=== PATIENT | female | born 1960 | race Caucasian/White ===

== ENCOUNTER 2022-06-28 17:31 | Emergency (ER) | payer MEDICARE, MEDICAID ==
[~2022-06-28] VITALS: Ht 152.4 cm; Wt 84.0 kg
[2022-06-28 17:46] VITALS: BP 145/78
[2022-06-28] MEDS ORDERED: CARISOPRODOL 350 MG TABLET PO ONE (21:45)
[2022-06-28] MEDS ORDERED: IPRATROPIUM/ALBUTEROL 0.5-3(2.5)MG/3ML NEB HHN ONE (21:45)
[2022-06-28] MEDS ORDERED: CARI350T28 MT (22:01)
[2022-06-28] MEDS ORDERED: CYCL10TA21 MT (22:03)
== END 2022-06-28 22:35 | disposition home or self-care (01) ==
LOC: ER 17:31
DX: M54.50 Low back pain, unspecified (principal); M54.2 Cervicalgia; F32.A Depression, unspecified; M19.90 Unspecified osteoarthritis, unspecified site; J44.9 Chronic obstructive pulmonary disease, unspecified; E11.9 Type 2 diabetes mellitus without complications; E78.00 Pure hypercholesterolemia, unspecified; Z90.49 Acquired absence of other specified parts of digestive tract; Z88.6 Allergy status to analgesic agent; V43.02XA Car driver injured in collision with other type car in nontraffic accident, initial encounter; Y93.89 Activity, other specified; Y92.481 Parking lot as the place of occurrence of the external cause
CPT/HCPCS: 94640; 99283

== ENCOUNTER 2024-08-05 06:00 | Inpatient (IN) | payer MEDICARE, MEDICAID ==
[~2024-08-05] VITALS: Ht 165.1 cm; Wt 83.0 kg
[~2024-08-05 06:00] MED LIST: CYCL10TA21 MT
[2024-08-05] MEDS ORDERED: METHYLPREDNISOLONE SOD SUCC 125MG/2ML (ACT-O-VIAL) IV STA (06:31)
[2024-08-05] MEDS ORDERED: ONDANSETRON HCL 4MG/2ML INJ IV ONE (06:45)
[2024-08-05 07:01] VITALS: PULSE 108; RESP 20; O2SAT 92
[2024-08-05] MEDS: ALBUTEROL (0.083%) 2.5MG/3ML NEB HHN SCH ×2 (07:01→09:30)
[2024-08-05] MEDS: IPRATROPIUM BROMIDE (0.02%) 0.5MG/2.5ML NEB HHN STA (07:02)
[2024-08-05 07:58] LABS: BASOPHILS % 0.5 % (0.0-2.0); EOSINOPHILS % 2.8 % (0.0-5.0); HEMATOCRIT. 44.2 % (36.0-48.0); HEMOGLOBIN. 15.2 g/dL (12.0-16.0); LYMPHOCYTES % 17.4 % (20.0-50.0); MEAN CORPUSCULAR HEMOGLOBIN 31.2 pg (28.0-32.0); MEAN CORPUSCULAR HGB CONC 34.3 g/dL (31.0-37.0); MEAN CORPUSCULAR VOLUME 90.8 fL (81.0-99.0); MONOCYTES % 8.3 % (2.0-8.0); PLATELET 129 x1000/uL (130-400); RED BLOOD CELL COUNT 4.87 mill/uL (4.2-5.4); RED CELL DISTRIBUTION WIDTH 13.1 % (11.6-14.6); WHITE BLOOD COUNT 6.6 x1000/uL (4.5-11.0)
[2024-08-05 08:04] LABS: CHLORIDE 102 mEq/L (98-107); SODIUM 138 mEq/L (136-145)
[2024-08-05 08:05] LABS: CALCIUM 8.7 mg/dL (8.7-10.4); CARBON DIOXIDE 31 mEq/L (21-32)
[2024-08-05 08:10] LABS: CREATININE 0.7 mg/dL (0.6-1.0); GLUCOSE 225 mg/dL (70-105); TROPONIN I HIGH SENSITIVITY 5 ng/L (3.0-34); UREA NITROGEN BLOOD 9 mg/dL (9-23)
[2024-08-05] MEDS: ONDANSETRON HCL 4MG/2ML INJ IV NR (08:26)
[2024-08-05] MEDS: METHYLPREDNISOLONE SOD SUCC 125MG/2ML (ACT-O-VIAL) IV NR (08:26)
[2024-08-05 09:30] VITALS: PULSE 102; RESP 19; O2SAT 96
[2024-08-05] MEDS: IPRATROPIUM BROMIDE (0.02%) 0.5MG/2.5ML NEB HHN NR (09:30)
[2024-08-05] MEDS ORDERED: DOCUSATE SODIUM 100MG CAPSULE PO PRN (09:30)
[2024-08-05] MEDS ORDERED: ACETAMINOPHEN 325MG TABLET PO PRN (09:30)
[2024-08-05] MEDS ORDERED: MAGNESIUM/ALUMINUM HYDROXIDE/SIMETHICONE 30ML UDC PO PRN (09:30)
[2024-08-05] MEDS ORDERED: DEXTROSE 50% WATER 50ML SYRINGE IV PRN (09:30)
[2024-08-05 10:04] LABS: CLARITY URINE CLEAR (CLEAR); COLOR URINE YELLOW (YELLOW); GLUCOSE URINE TRACE (NEGATIVE); KETONES URINE NEGATIVE (NEGATIVE); LEUKOCYTE ESTERASE URINE 1+ (NEGATIVE); NITRITE URINE NEGATIVE (NEGATIVE); OCCULT BLOOD URINE NEGATIVE (NEGATIVE); PROTEIN URINE NEGATIVE (NEGATIVE); SPECIFIC GRAVITY URINE 1.004 (1.005-1.030); UROBILINOGEN URINE 0.2 E.U./dL (0.2-1.0)
[2024-08-05 10:18] LABS: *AMPHETAMINES SCREEN URINE NEGATIVE (NEGATIVE); *BARBITURATES SCREEN URINE NEGATIVE (NEGATIVE); *BENZODIAZEPINES SCREEN URINE NEGATIVE (NEGATIVE); *COCAINE SCREEN URINE NEGATIVE (NEGATIVE); CANNABINOID URINE SCREEN NEGATIVE (NEGATIVE); ECSTASY MDMA SCREEN URINE NEGATIVE (NEGATIVE); METHADONE URINE SCREEN NEGATIVE (NEGATIVE); OPIATES URINE SCREEN PRESUMPTIVE POSITIVE (NEGATIVE); PHENCYCLIDINE URINE SCREEN NEGATIVE (NEGATIVE)
[2024-08-05 10:23] LABS: BACTERIA URINE 2+; RBC URINE 0-2 /hpf (0-2); SQUAMOUS EPITHELIAL CELL URINE RARE /lpf (RARE/1+); YEAST URINE NONE SEEN
[2024-08-05] MEDS: METHYLPREDNISOLONE SOD SUCC 40MG/ML (ACT-O-VIAL) IV SCH (10:46)
[2024-08-05] MEDS: METOCLOPRAMIDE HCL 10MG/2ML VIAL IV NR (10:46)
[2024-08-05] MEDS: INSULIN GLARGINE 100 UNITS/ML SUBCUT SCH ×2 (10:47→21:25)
[2024-08-05] MEDS: PANTOPRAZOLE 40MG DR TABLET PO SCH (10:47)
[2024-08-05] MEDS: CEFTRIAXONE 1GM/50ML 50 ML IV SCH (11:24)
[2024-08-05 12:07] LABS: TROPONIN I HIGH SENSITIVITY 5 ng/L (3.0-34)
[2024-08-05] MEDS: AZITHROMYCIN 500 MG in SODIUM CHLORIDE 0.9% 250 ML IV SCH (12:30)
[2024-08-05] MEDS: ONDANSETRON HCL 4MG/2ML INJ IV PRN (13:48)
[2024-08-05 13:51] VITALS: PULSE 109; RESP 24; O2SAT 96
[2024-08-05] MEDS: IPRATROPIUM/ALBUTEROL 0.5-3(2.5)MG/3ML NEB HHN SCH (13:58)
[2024-08-05] MEDS: BLOOD SUGAR DIAGNOSTIC STRIP TEST SCH (14:14)
[2024-08-05] MEDS: INSULIN LISPRO 100 UNITS/ML SUBCUT SCH (14:20)
[2024-08-05] MEDS: GABAPENTIN 400MG CAPSULE PO SCH (14:26)
[2024-08-05] MEDS: LORAZEPAM 0.5MG TABLET PO PRN (14:31)
[2024-08-05 14:33] LABS: PHOSPHORUS 3.6 mg/dL (2.5-4.9)
[2024-08-05 17:06] LABS: TROPONIN I HIGH SENSITIVITY 5 ng/L (3.0-34)
[2024-08-05] MEDS ORDERED: GABA800T97 PO (20:03)
[2024-08-05] MEDS ORDERED: INSU100I24 SUBCUT (20:03)
[2024-08-05] MEDS ORDERED: HYDR-4009 PO (20:03)
[2024-08-05] MEDS ORDERED: DOCU-150 PO (20:03)
[2024-08-05] MEDS ORDERED: DIPH25CA51 PO (20:03)
[2024-08-05] MEDS: ATORVASTATIN CALCIUM 10MG TABLET PO SCH (20:20)
[2024-08-05] MEDS: GUAIFENESIN 200MG/10ML SUGAR FREE UDC PO PRN (20:21)
[2024-08-05 20:55] VITALS: BP 169/71; PULSE 110; RESP 22; TEMP 35.89176; O2SAT 94
[2024-08-05] MEDS: CLONIDINE 0.1MG TABLET PO PRN (21:23)
[2024-08-05 21:32] VITALS: PULSE 96; RESP 20; O2SAT 97
[2024-08-06] VITALS (13 sets, daily range): BP systolic 105–169; BP diastolic 48–71; PULSE 85–110; RESP 16–24; TEMP 35.9176–37.39188; O2SAT 93–98
[2024-08-06 07:04] LABS: CHLORIDE 101 mEq/L (98-107); POTASSIUM 4.4 mEq/L (3.5-5.1); SODIUM 138 mEq/L (136-145)
[2024-08-06 07:05] LABS: CALCIUM 9.4 mg/dL (8.7-10.4); CARBON DIOXIDE 31 mEq/L (21-32)
[2024-08-06 07:08] LABS: TRIGLYCERIDE 76 mg/dL (0-150)
[2024-08-06 07:09] LABS: TROPONIN I HIGH SENSITIVITY 6 ng/L (3.0-34)
[2024-08-06 07:10] LABS: CREATININE 0.7 mg/dL (0.6-1.0); GLUCOSE 299 mg/dL (70-105); UREA NITROGEN BLOOD 19 mg/dL (9-23)
[2024-08-06 07:11] LABS: LDL CHOLESTEROL 83 mg/dL (5-100)
[2024-08-06 07:12] LABS: ALANINE AMINOTRANSFERASE 14 IU/L (10-49); ALBUMIN 3.7 g/dL (3.2-4.8); ASPARTATE AMINOTRANSFERASE 15 IU/L (<34); BILIRUBIN DIRECT 0.1 mg/dL (<=3.0); BILIRUBIN TOTAL 0.4 mg/dL (0.1-1.0); CHOLESTEROL 123 mg/dL (<200); CREATINE KINASE 88 IU/L (34-145); HDL CHOLESTEROL 36 mg/dL (>65); PROTEIN TOTAL 6.7 g/dL (6.0-8.3)
[2024-08-06 07:13] LABS: T4 FREE 1.14 ng/dL (0.89-1.76)
[2024-08-06 07:30] LABS: HEMATOCRIT. 44.9 % (36.0-48.0); LYMPHOCYTES % 9.3 % (20.0-50.0); MEAN CORPUSCULAR HEMOGLOBIN 30.8 pg (28.0-32.0); MEAN CORPUSCULAR HGB CONC 33.5 g/dL (31.0-37.0); MEAN CORPUSCULAR VOLUME 91.8 fL (81.0-99.0); MONOCYTES % 2.7 % (2.0-8.0); PLATELET 139 x1000/uL (130-400); RED BLOOD CELL COUNT 4.89 mill/uL (4.2-5.4); RED CELL DISTRIBUTION WIDTH 13.2 % (11.6-14.6)
[2024-08-06] MEDS: NICOTINE 21MG PATCH TD SCH (13:20)
[2024-08-06] MEDS: TERBUTALINE SULFATE 1MG/ML VIAL SUBCUT NR (14:02)
[2024-08-06] MEDS: METHYLPREDNISOLONE SOD SUCC 40MG/ML (ACT-O-VIAL) IV SCH (17:30)
[2024-08-06] MEDS: INSULIN LISPRO 100 UNITS/ML SUBCUT NR ×2 (17:59→18:36)
[2024-08-06] MEDS: INSULIN REGULAR (HUMULIN R) 1000UNITS/10ML VIAL IV NR (19:50)
[2024-08-06 20:23] LABS: CHLORIDE 101 mEq/L (98-107); POTASSIUM 4.3 mEq/L (3.5-5.1); SODIUM 136 mEq/L (136-145)
[2024-08-06 20:24] LABS: CALCIUM 9.3 mg/dL (8.7-10.4); CARBON DIOXIDE 30 mEq/L (21-32)
[2024-08-06 20:29] LABS: CREATININE 0.8 mg/dL (0.6-1.0); GLUCOSE 382 mg/dL (70-105); TROPONIN I HIGH SENSITIVITY 8 ng/L (3.0-34); UREA NITROGEN BLOOD 22 mg/dL (9-23)
[2024-08-06 20:31] LABS: CREATINE KINASE 127 IU/L (34-145)
[2024-08-06] MEDS ORDERED: PIPERACILLIN/TAZO 3.375G/50ML 50 ML IV SCH (22:00)
[2024-08-06] MEDS: INSULIN LISPRO 100 UNITS/ML SUBCUT SCH (22:20)
[2024-08-07] VITALS (12 sets, daily range): BP systolic 109–147; BP diastolic 54–79; PULSE 66–113; RESP 16–24; TEMP 36.00288–36.6696; O2SAT 93–99
[2024-08-07] MEDS: ACETAMINOPHEN 325MG TABLET PO PRN (03:45)
[2024-08-07] MEDS: CLOPIDOGREL 75MG TABLET PO SCH (08:45)
[2024-08-07] MEDS: INSULIN LISPRO 100 UNITS/ML SUBCUT SCH (08:50)
[2024-08-07] MEDS ORDERED: ASPIRIN 81MG TABLET PO SCH (09:00)
[2024-08-07] MEDS: IPRATROPIUM/ALBUTEROL 0.5-3(2.5)MG/3ML NEB HHN SCH (12:38)
[2024-08-07] MEDS: AZITHROMYCIN 500 MG TABLET PO SCH (12:43)
[2024-08-07] MEDS ORDERED: BENZONATATE 100MG CAPSULE PO PRN (16:00)
[2024-08-07] MEDS: IPRATROPIUM/ALBUTEROL 0.5-3(2.5)MG/3ML NEB HHN PRN (18:36)
[2024-08-07] MEDS: SODIUM CHLORIDE 10% FOR INH 15ML NEB INH NR (18:36)
[2024-08-08] VITALS: BP 135/67; PULSE 93; RESP 19; TEMP 36.28068; O2SAT 96
[2024-08-08 04:00] VITALS: BP 143/56; PULSE 94; RESP 22; TEMP 36.44736; O2SAT 92
[2024-08-08 04:12] VITALS: PULSE 90; RESP 20; O2SAT 98
[2024-08-08 06:51] LABS: BASOPHILS % 0.2 % (0.0-2.0); EOSINOPHILS % 0.6 % (0.0-5.0); HEMATOCRIT. 43.6 % (36.0-48.0); HEMOGLOBIN. 14.6 g/dL (12.0-16.0); LYMPHOCYTES % 25.2 % (20.0-50.0); MEAN CORPUSCULAR HEMOGLOBIN 30.8 pg (28.0-32.0); MEAN CORPUSCULAR HGB CONC 33.5 g/dL (31.0-37.0); MEAN PLATELET VOLUME 10.1 fl (7.4-10.4); MONOCYTES % 8.3 % (2.0-8.0); NEUTROPHILS % 65.7 % (40.0-76.0); PLATELET 132 x1000/uL (130-400); RED BLOOD CELL COUNT 4.74 mill/uL (4.2-5.4); RED CELL DISTRIBUTION WIDTH 13.3 % (11.6-14.6); WHITE BLOOD COUNT 10.7 x1000/uL (4.5-11.0)
[2024-08-08 07:22] LABS: CHLORIDE 104 mEq/L (98-107); POTASSIUM 3.5 mEq/L (3.5-5.1); SODIUM 141 mEq/L (136-145)
[2024-08-08 07:23] LABS: CALCIUM 8.6 mg/dL (8.7-10.4); CARBON DIOXIDE 32 mEq/L (21-32)
[2024-08-08 07:28] LABS: CREATININE 0.7 mg/dL (0.6-1.0); GLUCOSE 102 mg/dL (70-105); UREA NITROGEN BLOOD 16 mg/dL (9-23)
[2024-08-08 08:00] VITALS: BP 145/55; PULSE 84; RESP 18; TEMP 36.33624; O2SAT 97
[2024-08-08] MEDS ORDERED: FLUT1DIS3 INH (09:27)
[2024-08-08] MEDS ORDERED: ALBU18HF2 IH (09:27)
[2024-08-08] MEDS ORDERED: P20 PO (09:27)
[2024-08-08 11:14] VITALS: BP 145/55; PULSE 84; TEMP 97.5; O2SAT 97
[2024-08-08 12:00] VITALS: BP 119/60; PULSE 80; RESP 20; TEMP 36.6696; TEMP 36.66960; O2SAT 98
== END 2024-08-08 13:30 | disposition home or self-care (01) | DRG 190 ==
LOC: ER 06:00 → EDBEDREQTM 07:57 → EDBEDREQ 07:57 → 5WST 13:28 → 7WST 20:44
PROVIDERS: ADMIT Internal Medicine; ATTEND Internal Medicine
PROC: 5A09357 Assistance with Respiratory Ventilation, Less than 24 Consecutive Hours, Continuous Positive Airway Pressure (ICD-10-PCS; principal; 2024-08-08)
DX: J44.1 Chronic obstructive pulmonary disease with (acute) exacerbation (principal); J96.21 Acute and chronic respiratory failure with hypoxia; R65.10 Systemic inflammatory response syndrome (SIRS) of non-infectious origin without acute organ dysfunction; E11.43 Type 2 diabetes mellitus with diabetic autonomic (poly)neuropathy; I11.0 Hypertensive heart disease with heart failure; E78.00 Pure hypercholesterolemia, unspecified; Z20.822 Contact with and (suspected) exposure to COVID-19; K31.84 Gastroparesis; I50.9 Heart failure, unspecified; D72.820 Lymphocytosis (symptomatic); E11.65 Type 2 diabetes mellitus with hyperglycemia; D69.6 Thrombocytopenia, unspecified; F17.210 Nicotine dependence, cigarettes, uncomplicated; Z90.49 Acquired absence of other specified parts of digestive tract; Z79.51 Long term (current) use of inhaled steroids; Z79.4 Long term (current) use of insulin; Z99.81 Dependence on supplemental oxygen; Z88.6 Allergy status to analgesic agent; Z86.718 Personal history of other venous thrombosis and embolism
CPT/HCPCS: 36415; 71045; 71275; 80048; 80061; 80076; 80305; 81003; 82550; 82962; 83036; 83605; 83735; 83880; 84100; 84145; 84439; 84443; 84484; 85025; 85379; 87070; 87426; 87804; 93005; 93970; 94640; 94760; 97166; 99291; J0456; J0696; J1815; J2405; J2765; J2919; J2920; J3105; J7050; J7131